=== PATIENT | female | born 2000 | race Two or more races ===

== ENCOUNTER 2022-03-11 20:32 | Emergency (ER) | payer OTHER ==
[~2022-03-11] VITALS: Ht 170.2 cm; Wt 77.1 kg
== END 2022-03-12 01:31 ==
LOC: ER 20:32
DX: O26.891 Other specified pregnancy related conditions, first trimester (principal); Z3A.12 12 weeks gestation of pregnancy; R10.2 Pelvic and perineal pain; Z91.013 Allergy to seafood

== ENCOUNTER 2022-03-30 20:56 | Emergency (ER) | payer OTHER ==
[~2022-03-30] VITALS: Ht 172.7 cm; Wt 76.7 kg
== END 2022-03-30 21:54 | disposition home or self-care (01) ==
LOC: ER 20:56
DX: M54.59 Other low back pain (principal); M62.830 Muscle spasm of back

== ENCOUNTER 2022-07-14 16:54 | Outpatient (CLI) | payer OTHER ==
[2022-07-14] MEDS ORDERED: PRENATAL 19 TA1 EAC2 PO (17:10)
== END 2022-07-15 09:56 | disposition home or self-care (01) ==
LOC: OBS/DEL 16:54
PROVIDERS: ATTEND Obstetrics & Gynecology
DX: O60.03 Preterm labor without delivery, third trimester (principal); Z3A.30 30 weeks gestation of pregnancy; Z91.013 Allergy to seafood

== ENCOUNTER 2022-09-02 16:12 | Outpatient (CLI) | payer OTHER ==
[~2022-09-02 16:12] MED LIST: PRENATAL 19 TA1 EAC2 PO
== END 2022-09-03 09:59 | disposition home or self-care (01) ==
LOC: OBS/DEL 16:12
PROVIDERS: ATTEND Obstetrics & Gynecology
DX: O23.33 Infections of other parts of urinary tract in pregnancy, third trimester (principal); N39.0 Urinary tract infection, site not specified; Z3A.37 37 weeks gestation of pregnancy; Z91.013 Allergy to seafood

== ENCOUNTER 2022-09-15 05:35 | Inpatient (IN) | payer OTHER ==
[~2022-09-15] VITALS: Ht 170.2 cm; Wt 3.6 kg
== END 2022-09-18 13:59 | disposition home or self-care (01) | DRG 788 ==
LOC: LDR 05:35 → OB/GYN 21:36
PROVIDERS: ADMIT Obstetrics & Gynecology; ATTEND Obstetrics & Gynecology
PROC: 3E033VJ Introduction of Other Hormone into Peripheral Vein, Percutaneous Approach (ICD-10-PCS; 2022-09-15)
PROC: 3E0P7VZ Introduction of Hormone into Female Reproductive, Via Natural or Artificial Opening (ICD-10-PCS; 2022-09-15)
PROC: 4A1HXCZ Monitoring of Products of Conception, Cardiac Rate, External Approach (ICD-10-PCS; 2022-09-15)
PROC: 10D00Z1 Extraction of Products of Conception, Low, Open Approach (ICD-10-PCS; principal; 2022-09-15 17:00)
DX: O36.63X0 Maternal care for excessive fetal growth, third trimester, not applicable or unspecified (principal); O62.1 Secondary uterine inertia; O24.420 Gestational diabetes mellitus in childbirth, diet controlled; Z3A.39 39 weeks gestation of pregnancy; Z37.0 Single live birth; Z20.822 Contact with and (suspected) exposure to COVID-19

== ENCOUNTER 2022-10-27 18:47 | Emergency (ER) | payer OTHER ==
[~2022-10-27] VITALS: Ht 170.2 cm; Wt 77.1 kg
== END 2022-10-27 22:14 ==
LOC: ER 18:47
DX: N64.4 Mastodynia (principal); N61.0 Mastitis without abscess; Z91.013 Allergy to seafood

== ENCOUNTER 2022-11-01 21:36 | Emergency (ER) | payer OTHER ==
[~2022-11-01] VITALS: Ht 170.2 cm; Wt 79.4 kg
[2022-11-01] MEDS ORDERED: DICLOXACILLIN500 MG (21:44)
== END 2022-11-01 22:55 | disposition home or self-care (01) ==
LOC: ER 21:36
DX: N61.0 Mastitis without abscess (principal); R53.81 Other malaise; Z91.013 Allergy to seafood

== ENCOUNTER 2022-11-05 12:29 | Emergency (ER) | payer OTHER ==
[~2022-11-05] VITALS: Ht 167.6 cm; Wt 79.4 kg
[~2022-11-05 12:29] MED LIST changes: +DICLOXACILLIN500 MG
== END 2022-11-05 17:29 | disposition home or self-care (01) ==
LOC: ER 12:29 → EMR PED 12:31 → ER 17:29
DX: N61.0 Mastitis without abscess (principal); N64.4 Mastodynia; Z91.013 Allergy to seafood